=== PATIENT | female | born 1995 | race Two or more races ===

== ENCOUNTER 2023-07-13 13:36 | Emergency (ER) | payer OTHER, SELFPAY ==
[2023-07-13] VITALS (7 sets, daily range): BP systolic 116–131; BP diastolic 80–97; PULSE 81–89; RESP 18–20; TEMP 36.7–36.8; O2SAT 96–99; BMI 35.5
[2023-07-13] MEDS: ONDANSETRON 4MG/2ML VIAL 4 MG IV (14:08)
[2023-07-13] MEDS: LACTATED RINGERS 1000ML 1,000 ML 999 ML IV (14:08)
[2023-07-13] MEDS: KETOROLAC 30MG/ML VIAL 15 MG IV ×2 (14:08→15:01)
--- NOTE | 2023-07-13 14:11 | HMH.EDGENADL ---
Discharge Plan Disposition Patient Disposition: Home, Self-Care Condition: Good Prescriptions Prescriptions: New naproxen 500 mg tablet 500 mg PO BID Qty: 20 0RF Referrals Follow up/Referrals: Lisandra Steen DO [Staff Physician] - See instructions Servando Chu MD [Staff Physician] - See instructions Darline Leonard DO [Staff Physician] - See instructions Provider,MD Mercedez [Primary Care Provider] - See instructions Activity Restrictions/Add. Instructions Additional Instructions/Restrictions: You were evaluated in the emergency department today. Please follow-up closely with gynecology. garbage pick up man your prescription for naproxen and take as prescribed. You may also take Tylenol every 4-6 hours as needed for pain. Return to the emergency department for new or worsening symptoms. Clinical Impressions Clinical Impression: Menorrhagia, Thickened endometrium Stand Alone Forms Stand Alone Forms: Work/School Release Instructions Patient Instructions: DI for Menorrhagia, DI for Acute Abdominal Pain Discharge ED Provider: Janette Luna General Adult HPI <Rory Navarrete MD - Last Filed: 07/13/23 14:55> General Chief complaint: Abdominal Pain Stated complaint: abd pain, vaginal bleeding Time Seen by Provider: 07/13/23 13:50 Mode of Arrival: Ambulatory Source of Information: Patient Limitations: No Limitations Description of Symptoms (Recalled from ER Triage Doc. by RN): pt has hx of PCOS and is here today due to uncontrollable pain/cramping. pain is mainly in left pelvic area and pt states pain has been so bad she has been nauseated and vomitting as well as she also wants her blood levels checked as she has had to get transfusions in the past History of Present Illness HPI narrative: Please note that above description of symptoms, in this electronic medical record under categorization of recalled from ER triage doctor by RN are reflective of an initial nursing assessment, however, is not reflective of my full history and physical exam that was personally taken and clarified. Consequentially, this preceding description of symptoms, which may include the patient's categorized chief complaint in the EMR, do not reflect my personal clinical impression, and the ultimate description of history of present illness and patient stated complaints should be deferred to this section of the note. Unless stated otherwise or congruent with this section of the note, additional signs, symptoms, or incongruence should be interpreted as inaccurate with my clinical impression. Related Data Previous Rx's Medication Instructions Recorded naproxen 500 mg tablet 500 mg PO BID #20 tabs 07/13/23 Allergies Allergy/AdvReac Type Severity Reaction Status Date / Time amitriptyline Allergy Verified 07/13/23 14:05 amoxicillin [From Augmentin] Allergy Verified 07/13/23 14:05 clavulanic acid Allergy Verified 07/13/23 14:05 [From Augmentin] doxycycline Allergy Verified 07/13/23 14:05 PFSH <Rory Navarrete MD - Last Filed: 07/13/23 14:55> [facility] Disclaimer: The information contained in this section may have been updated after the patient was seen, as this information can be updated by other users. Social History (Updated 07/13/23 @ 14:55 by Rory Navarrete MD) Smoking Status: Never smoker alcohol intake: never current occupational status: employed Travel in the last 8 weeks: None <Rory Navarrete MD - Last Filed: 07/13/23 14:55> ROS Obtained: Yes All systems reviewed & no additional complaints except as documented Physical Exam <Rory Navarrete MD - Last Filed: 07/13/23 14:55> General General appearance: alert and in no apparent distress Head Head exam: atraumatic and normocephalic Eye Eye exam: Present normal appearance, PERRL and EOMI ENT ENT exam: Present mucous membranes moist Neck Neck exam: Present normal inspection, full ROM and trachea midline Respiratory Respiratory exam: Absent respiratory distress, wheezes, stridor, accessory muscle use or prolonged expiratory phase Cardiovascular Cardiovascular exam: Present normal rhythm Abdominal Exam Abdominal exam: Present soft; Absent distention, tenderness, guarding, rebound or rigidity Extremities Exam Extremities exam: Absent edema Neurological Exam Neurological exam: Present alert, oriented X3, CN II-XII intact and normal gait; Absent motor sensory deficit Skin Skin exam: Present warm and dry; Absent diaphoresis or erythema Medical Decision Making <Rory Navarrete MD - Last Filed: 07/13/23 14:55> Medical Records Medical records reviewed: Yes I reviewed the patient's medical records. Tomi Inquiry Pt receiving controlled substance: No Tomi was queried for this patient: No Vital Signs: 07/13/23 13:38 07/13/23 13:44 07/13/23 14:00 Temperature 98.2 F Temperature Source Oral Pulse Rate 89 87 Pulse Rate [Right Radial] 81 Respiratory Rate 20 Blood Pressure 131/92 H 117/91 H Blood Pressure [Right Arm] 131/97 H Blood Pressure Mean [Right Arm] 108 Blood Pressure Source Blood Pressure Position 02 Sat by Pulse Oximetry 98 97 96 Oxygen Delivery Method Room Air 07/13/23 14:30 07/13/23 15:00 07/13/23 16:30 Temperature Temperature Source Pulse Rate 81 83 83 Pulse Rate [Right Radial] Respiratory Rate Blood Pressure 129/88 122/88 118/80 Blood Pressure [Right Arm] Blood Pressure Mean [Right Arm] Blood Pressure Source Blood Pressure Position 02 Sat by Pulse Oximetry 97 99 97 Oxygen Delivery Method 07/13/23 17:10 Temperature 98.0 F Temperature Source Oral Pulse Rate 84 Pulse Rate [Right Radial] Respiratory Rate 18 Blood Pressure 116/84 Blood Pressure [Right Arm] Blood Pressure Mean [Right Arm] Blood Pressure Source Automatic Cuff Blood Pressure Position Sitting 02 Sat by Pulse Oximetry Oxygen Delivery Method Room Air Lab Data Lab Results 07/13/23 13:45: WBC 6.8, RBC 5.14, Hgb 11.6 L, Hct 38.0, MCV 73.9 L, MCH 22.5 L, MCHC 30.4 L, RDW 18.2 H, Plt Count 249, MPV 8.9, Neut % (Auto) 49.3, Lymph % (Auto) 41.1, Blackford % (Auto) 4.2, Eos % (Auto) 3.5, Baso % (Auto) 1.9, Neut # (Auto) 3.3, Lymph # (Auto) 2.8, Blackford # (Auto) 0.3, Eos # (Auto) 0.2, Baso # (Auto) 0.1, Sodium 138, Potassium 4.0, Chloride 108 H, Carbon Dioxide 23, Anion Gap 11.0, BUN 11, Creatinine 0.70, Estimated Creat Clear 185, Estimated GFR 98, Est GFR ( Amer) 119, Glucose 84, Calcium 9.1, Total Bilirubin 0.4, AST 43 H, ALT 45, Alkaline Phosphatase 82, Total Protein 7.7, Albumin 4.3, Globulin 3.4 H, Albumin/Globulin Ratio 1.3 07/13/23 15:20: Urine Color Yellow, Urine Appearance Clear, Urine pH 6.0, Ur Specific Wallace 1.025, Urine Protein Negative, Urine Glucose (UA) Negative, Urine Ketones Negative, Urine Blood 3+, Urine Nitrate Negative, Urine Bilirubin Negative, Urine Urobilinogen 0.2, Ur Leukocyte Esterase Negative, Urine RBC 3-5, Urine WBC None, Ur Squamous Epith Cells Occasional, Urine Bacteria None, Urine HCG, Qual Negative 07/13/23 13:45 07/13/23 13:45 Orders (Tests/Meds): ED MEDICATIONS Discontinued Medications Generic Name Dose Route Start Last Admin Trade Name Shantal PRN Reason Stop Dose Admin Acetaminophen 1,000 mg 07/13/23 14:53 07/13/23 15:00 Acetaminophen 1,000mg/100ml Vial IV 07/13/23 14:54 1,000 mg ONCE ONE Administration Dicyclomine HCl 20 mg 07/13/23 16:26 07/13/23 16:34 Dicyclomine 10mg Capsule PO 07/13/23 16:27 20 mg ONCE ONE Administration Lactated Ringer's 1,000 mls @ 999 mls/hr 07/13/23 14:01 07/13/23 14:08 Lactated Ringer's 1000 Ml Bag IV 07/13/23 15:01 999 mls/hr .Q1H1M ONE Administration Ketorolac Tromethamine 15 mg 07/13/23 14:01 07/13/23 14:08 Ketorolac 30mg/Ml Vial IV 07/13/23 14:02 15 mg ONCE ONE Administration Ketorolac Tromethamine 15 mg 07/13/23 14:53 07/13/23 15:01 Ketorolac 30mg/Ml Vial IV 07/13/23 14:54 15 mg ONCE ONE Administration Ondansetron HCl 4 mg 07/13/23 14:01 07/13/23 14:08 Ondansetron 4mg/2ml Vial IV 07/13/23 14:02 4 mg ONCE ONE Administration ORDERS Category Date Time Status US transvaginal Stat Exams 07/13/23 15:40 Completed CBC w/Auto Diff [Complete Blood Count Auto Diff] Stat Lab 07/13/23 13:45 Completed CMP [Comprehensive Metabolic Panel] Stat Lab 07/13/23 13:45 Completed UA [Urinalysis and Microscopic] Stat Lab 07/13/23 15:20 Completed Urine , HCG Qual. Stat Lab 07/13/23 15:20 Completed Medical Decision Narrative: 28-year-old female history of menorrhagia on and off of progesterone supplementation presenting with abdominal cramping and menorrhagia. Patient states that she has been having abdominal cramping symptoms in her lower abdomen for the last 10 days or so. Has also been on her menstrual period for about 10 days at this point. Not currently on hormone supplementation. She states that over the past couple days she has also developed epigastric cramping, vomiting is nonbloody, nonbilious, diarrhea this nonbloody. No fevers or chills, urinary symptoms, chance of , abdominal surgeries, or otherwise. Does not currently have OB follow-up. States that she is saturating 15-25 pads a day. History was obtained via conversation with patient. On arrival, patient hemodynamically stable, alert, oriented x4, appropriate, GCS 15, moving all extremities spontaneously, pupils equal and reactive to light. Full physical exam performed and significant for differential includes functional menorrhagia, fibroid, polyp, . Patient was given Toradol IV for symptomatic management and correction of underlying abnormalities. Workup independently interpreted and significant for hemoglobin 11.6, no leukocytosis. Rest of workup pending at time of handoff to oncoming physician. Maxillofacial Prosthodontist disclaimer Much of this encounter note is an electronic senior underwriting assistant spoken language to printed text. Electronic senior underwriting assistant of the spoken language may permit errors. Although I have reviewed the note, some errors may still exist. <Janette Luna, DO - Last Filed: 07/13/23 19:26> Vital Signs: 07/13/23 13:38 07/13/23 13:44 07/13/23 14:00 Temperature 98.2 F Temperature Source Oral Pulse Rate 89 87 Pulse Rate [Right Radial] 81 Respiratory Rate 20 Blood Pressure 131/92 H 117/91 H Blood Pressure [Right Arm] 131/97 H Blood Pressure Mean [Right Arm] 108 Blood Pressure Source Blood Pressure Position 02 Sat by Pulse Oximetry 98 97 96 Oxygen Delivery Method Room Air 07/13/23 14:30 07/13/23 15:00 07/13/23 16:30 Temperature Temperature Source Pulse Rate 81 83 83 Pulse Rate [Right Radial] Respiratory Rate Blood Pressure 129/88 122/88 118/80 Blood Pressure [Right Arm] Blood Pressure Mean [Right Arm] Blood Pressure Source Blood Pressure Position 02 Sat by Pulse Oximetry 97 99 97 Oxygen Delivery Method 07/13/23 17:10 Temperature 98.0 F Temperature Source Oral Pulse Rate 84 Pulse Rate [Right Radial] Respiratory Rate 18 Blood Pressure 116/84 Blood Pressure [Right Arm] Blood Pressure Mean [Right Arm] Blood Pressure Source Automatic Cuff Blood Pressure Position Sitting 02 Sat by Pulse Oximetry Oxygen Delivery Method Room Air Lab Data Lab Results 07/13/23 13:45: WBC 6.8, RBC 5.14, Hgb 11.6 L, Hct 38.0, MCV 73.9 L, MCH 22.5 L, MCHC 30.4 L, RDW 18.2 H, Plt Count 249, MPV 8.9, Neut % (Auto) 49.3, Lymph % (Auto) 41.1, [place] % (Auto) 4.2, Eos % (Auto) 3.5, Baso % (Auto) 1.9, Neut # (Auto) 3.3, Lymph # (Auto) 2.8, [place] # (Auto) 0.3, Eos # (Auto) 0.2, Baso # (Auto) 0.1, Sodium 138, Potassium 4.0, Chloride 108 H, Carbon Dioxide 23, Anion Gap 11.0, BUN 11, Creatinine 0.70, Estimated Creat Clear 185, Estimated GFR 98, Est GFR ( Amer) 119, Glucose 84, Calcium 9.1, Total Bilirubin 0.4, AST 43 H, ALT 45, Alkaline Phosphatase 82, Total Protein 7.7, Albumin 4.3, Globulin 3.4 H, Albumin/Globulin Ratio 1.3 07/13/23 15:20: Urine Color Yellow, Urine Appearance Clear, Urine pH 6.0, Ur Specific Wallace 1.025, Urine Protein Negative, Urine Glucose (UA) Negative, Urine Ketones Negative, Urine Blood 3+, Urine Nitrate Negative, Urine Bilirubin Negative, Urine Urobilinogen 0.2, Ur Leukocyte Esterase Negative, Urine RBC 3-5, Urine WBC None, Ur Squamous Epith Cells Occasional, Urine Bacteria None, Urine HCG, Qual Negative Orders (Tests/Meds): ED MEDICATIONS Discontinued Medications Generic Name Dose Route Start Last Admin Trade Name Freq PRN Reason Stop Dose Admin Acetaminophen 1,000 mg 07/13/23 14:53 07/13/23 15:00 Acetaminophen 1,000mg/100ml Vial IV 07/13/23 14:54 1,000 mg ONCE ONE Administration Dicyclomine HCl 20 mg 07/13/23 16:26 07/13/23 16:34 Dicyclomine 10mg Capsule PO 07/13/23 16:27 20 mg ONCE ONE Administration Lactated Ringer's 1,000 mls @ 999 mls/hr 07/13/23 14:01 07/13/23 14:08 Lactated Ringer's 1000 Ml Bag IV 07/13/23 15:01 999 mls/hr .Q1H1M ONE Administration Ketorolac Tromethamine 15 mg 07/13/23 14:01 07/13/23 14:08 Ketorolac 30mg/Ml Vial IV 07/13/23 14:02 15 mg ONCE ONE Administration Ketorolac Tromethamine 15 mg 07/13/23 14:53 07/13/23 15:01 Ketorolac 30mg/Ml Vial IV 07/13/23 14:54 15 mg ONCE ONE Administration Ondansetron HCl 4 mg 07/13/23 14:01 07/13/23 14:08 Ondansetron 4mg/2ml Vial IV 07/13/23 14:02 4 mg ONCE ONE Administration ORDERS Category Date Time Status US transvaginal Stat Exams 07/13/23 15:40 Completed CBC w/Auto Diff [Complete Blood Count Auto Diff] Stat Lab 07/13/23 13:45 Completed CMP [Comprehensive Metabolic Panel] Stat Lab 07/13/23 13:45 Completed UA [Urinalysis and Microscopic] Stat Lab 07/13/23 15:20 Completed Urine , HCG Qual. Stat Lab 07/13/23 15:20 Completed Medical Decision Narrative: 28-year-old female history of menorrhagia on and off of progesterone supplementation presenting with abdominal cramping and menorrhagia. Patient states that she has been having abdominal cramping symptoms in her lower abdomen for the last 10 days or so. Has also been on her menstrual period for about 10 days at this point. Not currently on hormone supplementation. She states that over the past couple days she has also developed epigastric cramping, vomiting is nonbloody, nonbilious, diarrhea this nonbloody. No fevers or chills, urinary symptoms, chance of , abdominal surgeries, or otherwise. Does not currently have OB follow-up. States that she is saturating 15-25 pads a day. History was obtained via conversation with patient. On arrival, patient hemodynamically stable, alert, oriented x4, appropriate, GCS 15, moving all extremities spontaneously, pupils equal and reactive to light. Full physical exam performed and significant for differential includes functional menorrhagia, fibroid, polyp, . Patient was given Toradol IV for symptomatic management and correction of underlying abnormalities. Workup independently interpreted and significant for hemoglobin 11.6, no leukocytosis. Rest of workup pending at time of handoff to oncoming physician. Maxillofacial Prosthodontist disclaimer Much of this encounter note is an electronic senior underwriting assistant spoken language to printed text. Electronic senior underwriting assistant of the spoken language may permit errors. Although I have reviewed the note, some errors may still exist. DO Jeremy: I assumed care of the patient at 1500. Patient continues to complain of severe left lower quadrant pain. Abdominal exam is benign, but given her significant pain in the setting of prior ovarian cyst, transvaginal ultrasound was ordered. No concerns for cyst or torsion based on ultrasound. Labs are reassuring without significant elevation in inflammatory markers to suggest infectious process. Patient was feeling much better after oral Bentyl. Urine is concerning for hematuria, but the patient is currently having menstrual bleeding. No concerns for infection based on UA. Given reassuring workup and exam, I had discussion with the patient and offered CT scan to further evaluate her pain, but she states she is feeling better and is ready to go home. Given this, I feel that she is appropriate for discharge home with close follow-up with gynecology. She is given prescription for naproxen for menorrhagia and strict return precautions. Patient was discharged after all questions were answered. Critical Care <Rory Navarrete MD - Last Filed: 07/13/23 14:55> Critical Care Time Critical Care Time: No
[2023-07-13 14:19] LABS: Basophils # 0.1 K/mm3 (0-0.2); Basophils % 1.9 % (0.1-2.0); Eosinophils # 0.2 K/mm3 (0.0-0.4); Eosinophils % 3.5 % (0.1-12.0); Hemoglobin 11.6 g/dL (12.2-16.2); Lymphocytes # 2.8 K/mm3 (0.7-4.5); Lymphocytes % 41.1 % (10-50); Mean Corpuscular HGB Conc 30.4 g/dL (31.8-35.4); Mean Corpuscular Hemoglobin 22.5 pg (27.0-31.2); Mean Corpuscular Volume 73.9 fl (81-99); Mean Platelet Volume 8.9 fl (7.4-10.4); Monocytes # 0.3 K/mm3 (0.1-1.0); Monocytes % 4.2 % (1.7-9.3); Neutrophils # 3.3 K/mm3 (1.8-7.8); Neutrophils % 49.3 % (37.0-80.0); Platelet Count 249 K/mm3 (142-424); Red Blood Count 5.14 M/mm3 (4.20-5.40); Red Cell Distribution Width 18.2 % (11.5-17.5); White Blood Count 6.8 K/mm3 (4.8-10.8)
[2023-07-13 14:25] LABS: Chloride 108 mmol/L (98-107); Sodium 138 mmol/L (136-145)
[2023-07-13 14:28] LABS: Alanine Aminotransferase 45 U/L (12-78); Albumin Level 4.3 g/dl (3.5-5.0); Albumin/Globulin Ratio 1.3 (1.1-1.8); Alkaline Phosphatase 82 U/L (38-126); Aspartate Amino Transferase 43 U/L (14-36); Bilirubin,Total 0.4 mg/dl (0.2-1.3); Blood Urea Nitrogen 11 mg/dl (7-17); Carbon Dioxide 23 mmol/L (22.0-30.0); Creatinine Clearance Estimated 185 mL/min (50-200); Estimated Glomerular Filt Rate 98 ml/min (>60); GFR (African American) 119 ML/MIN (>60); Globulin 3.4 g/dL (1.3-3.2); Total Protein,Serum 7.7 g/dl (6.3-8.2)
[2023-07-13 14:29] LABS: Calcium 9.1 mg/dl (8.4-10.2); Glucose 84 mg/dl (74-100)
[2023-07-13] MEDS: ACETAMINOPHEN 1,000MG/100ML VIAL 1000 MG IV (15:00)
[2023-07-13 15:25] LABS: Microscopic, Urine URINE MICROSCOPIC (MICROSCOPIC)
[2023-07-13 15:38] LABS: Appearance,Urine CLEAR (Clear); Bilirubin,Urine Negative (Negative); Blood, Urine 3+ (Negative); Color,Urine YELLOW (Yellow); Glucose,Urine (UA) Negative (Negative); Ketones,Urine Negative (Negative); Leukocyte Esterase,Urine Negative (Negative); Nitrate,Urine Negative (Negative); Protein,Urine Negative (Negative); Specific Gravity, Urine 1.025 (1.005-1.030); Urobilinogen,Urine 0.2 EU/dl (0.2)
[2023-07-13 15:39] LABS: Urine Pregnancy, HCG Qual. Negative (Negative)
--- NOTE | 2023-07-13 15:39 | PC.NURSE ---
dr keating at bedside
--- NOTE | 2023-07-13 15:40 | US_ITS ---
PROCEDURE INFORMATION: Exam: US Pelvis, Transvaginal, Non-Obstetric Exam date and time: 07/13/2023 3:51 PM Age: 28 years old Clinical indication: Pelvic pain; Additional info: Llq pain, h/o ovarian cysts TECHNIQUE: Imaging protocol: Real-time transvaginal pelvic (non-obstetric) ultrasound with image documentation. Transvaginal imaging was used for better evaluation of the endometrium, adnexa, and/or cervix. COMPARISON: No relevant prior studies available. FINDINGS: Uterus: There are multiple small nabothian cysts. The uterus measures 7.8 x 4.2 x 5.5 cm. Endometrial lining measures 1 cm. Right ovary/adnexa: The right ovary measures 4.0 x 4.4 x 3 1 cm. There is normal arterial and venous flow to the right ovary. Left ovary/adnexa: The left ovary measures 3.3 x 3.0 x 3.3 cm. There is normal arterial and venous flow to the left ovary. Urinary bladder: Urinary bladder is limited. Intraperitoneal space: There is a small volume of free fluid in the deep pelvis. IMPRESSION: Mildly thickened endometrial lining with a normal sonographic appearance of the ovaries.
--- NOTE | 2023-07-13 15:41 | PC.NURSE ---
radiology notified of tv us
[2023-07-13 15:44] LABS: Squamous Epithelial Cell,Urine Occasional #/hpf (0-5)
--- NOTE | 2023-07-13 16:20 | PC.NURSE ---
pt c/o increases pain and requesting medication, dr ekating notified
[2023-07-13] MEDS: DICYCLOMINE 10MG CAPSULE 20 MG PO (16:34)
== END 2023-07-13 17:10 | disposition home or self-care (01) ==
PROVIDERS: Emergency Medicine; Emergency Provider Emergency Medicine; PCP Internal Medicine
DX: R10.30 Lower abdominal pain, unspecified; R93.89 Abnormal findings on diagnostic imaging of other specified body structures; N85.00 Endometrial hyperplasia, unspecified; R11.2 Nausea with vomiting, unspecified
CPT/HCPCS: 76830; 80053; 81001; 81025; 85025; 96361; 96374; 96375; 96376; 99285; J0131; J2405; J7120